=== PATIENT | female | born 1945 | race Caucasian/White ===

== ENCOUNTER 2018-04-08 00:35 | Emergency (ER) | payer OTHER, MEDICARE ==
[~2018-04-08] VITALS: Ht 157.5 cm; Wt 67.9 kg
[~2018-04-08 00:35] MED LIST: AMITRIPTYLINE H25 MG PO; ASPIRIN81 M1 PO; ATENOLOL50 MG PO; Ativan PO; DETROL LA4 MG PO; Ecotrin PO; Elavil PO; LIPITOR10 MG PO; LORAZEPAM0.5 MG PO; Tenormin PO
[2018-04-08 01:25] LABS: HEMATOCRIT 37.7 % (36.0-46.0); HEMOGLOBIN 13.5 G/DL (11.9-15.5); MCH 32.6 PG (29.0-34.0); MCHC 35.8 G/DL (30.0-36.0); MCV 91.1 FL (83-99); PLATELET COUNT 191 K/uL (156-360); RBC DIS.WIDTH-SD 39.8 % (39-53); RED BLOOD COUNT 4.14 M/uL (3.80-5.20); WHITE BLOOD COUNT 13.7 K/uL (4.1-10.2)
[2018-04-08 01:36] LABS: CHLORIDE 106 mEq/L (99-109); SODIUM 139 mEq/L (136-147)
[2018-04-08 01:38] LABS: GLUCOSE 166 mg/dL (70-99)
[2018-04-08 01:41] LABS: GFR ESTIMATE (CALCULATED) 58 mL/min/
[2018-04-08 01:42] LABS: UREA NITROGEN (BUN) 28 mg/dL (9-23)
[2018-04-08 01:45] LABS: TROP-I INTERPRETATION NEGATIVE; TROPONIN-I < 0.01 ng/mL (0.0-0.30)
[2018-04-08 03:27] VITALS: BP 130/63
[2018-04-08 04:50] LABS: ERTH.SED.RATE 30 MM/HR (0-30)
== END 2018-04-08 03:28 | disposition home or self-care (01) ==
LOC: EME 00:35
DX: R21 Rash and other nonspecific skin eruption (principal); R22.0 Localized swelling, mass and lump, head; I10 Essential (primary) hypertension; E78.5 Hyperlipidemia, unspecified; Z79.82 Long term (current) use of aspirin; Z88.1 Allergy status to other antibiotic agents
CPT/HCPCS: 71046; 80048; 84484; 85027; 85651; 86038; 93005; 99281; 99284; Q0177